=== PATIENT | female | born 1940 | race Caucasian/White ===

== ENCOUNTER 2022-09-20 10:35 | Outpatient (CLI) | payer MEDICARE, SELFPAY | END 2022-09-20 10:36 | disposition home or self-care (01) | PROVIDERS: PCP Family Medicine; Visit Provider Family Medicine | DX: I10 Essential (primary) hypertension (principal); E53.8 Deficiency of other specified B group vitamins; E78.5 Hyperlipidemia, unspecified; F41.9 Anxiety disorder, unspecified; R53.83 Other fatigue | CPT/HCPCS: 80053; 80061; 82607; 84443 ==

== ENCOUNTER 2022-10-28 08:49 | Outpatient (CLI) | payer MEDICARE, SELFPAY ==
--- NOTE | 2022-10-28 09:15 | CRLHL7_ITS ---
For Patients: As a result of the Century Cures Act, medical imaging exams and procedure reports are released immediately into your electronic medical record. You may view this report before your referring provider. If you have questions, please contact your health care provider. INDICATION: LIVER LESION, POSSIBLE GB PROBLEM ON CT COMPARISON: Not available TECHNIQUE: Real time albarado scale imaging and color Doppler analysis was performed of the right upper quadrant. FINDINGS: There is a cystic lesion arising from the liver adjacent to the gallbladder measuring 5.0 x 4.2 x 5.3 cm. Mild internal echoes are present within this cyst. A small left hepatic lobe cyst is also noted measuring 1.3 x 1.1 x 1.1 cm. A 3rd mildly cyst is also present within the left hepatic lobe measuring 1.2 x 0.7 x 1.5 cm. There is a normal appearance of the hepatic IVC and proximal abdominal aorta. There is no evidence of ascites. The gallbladder is of normal size and there is no evidence of intraluminal stones or sludge. The gallbladder wall measures 2 mm in thickness. The common bile duct is of normal size and measures 3 mm in diameter at the level of the alaina hepatis. The pancreas appears normal. There is no evidence of a stone or hydronephrosis within the right kidney. The right kidney measures 9.6 cm in length. IMPRESSION: 5.0 cyst with internal echoes arising from the liver centrally adjacent to the gallbladder. The gallbladder is normal. Additional smaller cysts in the left hepatic lobe measuring 1.3 cm and 1.2 cm. Dictated by Michael Barrientos MD @ 10/28/2022 10:34:15 AM (Electronically Signed)
== END 2022-10-28 08:50 | disposition home or self-care (01) ==
LOC: US 08:52
PROVIDERS: PCP Family Medicine; Visit Provider Family Medicine
DX: K76.9 Liver disease, unspecified (principal); K76.89 Other specified diseases of liver
CPT/HCPCS: 76705

== ENCOUNTER 2022-12-05 14:16 | Outpatient (CLI) | payer MEDICARE, SELFPAY ==
--- NOTE | 2022-12-05 14:30 | CRLHL7_ITS ---
For Patients: As a result of the Century Cures Act, medical imaging exams and procedure reports are released immediately into your electronic medical record. You may view this report before your referring provider. If you have questions, please contact your health care provider. DXA BONE MINERAL DENSITY STUDY Reason for exam: Asymptomatic menopausal state. Current height (in): 66. Weight (lb): 150. Menopause age: 51. Ethnicity: White. 1. Have you had a previous hip or vertebral fracture? No. 2. Have you had any fractures during your adult life which did not result from significant trauma (e.g., auto accident)? No. 3. Did either of your parents have a hip fracture? No. 4. Do you smoke? No. 5. Have you ever taken Glucocorticoids? No. 6. Do you have rheumatoid arthritis? No. 7. Do you have secondary osteoporosis? No. 8. Do you drink 3 or more alcoholic drinks per day? No. 9. Are you being treated for osteoporosis? No. 10. Have you ever taken any of the following medications: ANSWER: No. Actonel, Evista, Fosamax, Miacalcin, Reclast, Boniva, Forteo, HRT (i.e. estrogen/hormone therapy), Protelos, Prolia, Vitamin D, Calcium, other ??? please specify. 11. Do you have any of the following medical conditions: ANSWER: No. Anorexia or bulimia, asthma or emphysema, end stage renal disease, hyperparathyroidism, any seizure disorders, cancer, inflammatory bowel diseases, hysterectomy, other ??? please specify. 12. What was your maximum height (inches)? 66. 13. Do you perform weight bearing exercise regularly? No. 14. Do you regularly consume dairy products? Yes. 15. Do you drink caffeinated beverages? Yes. 16. At what age did your period start? 12. 17. Are you premenopausal? No. 18. How many full term pregnancies have you had? 3. 19. Have you ever missed your period for more than 6 months in a row (not including or menopause)? No. TECHNIQUE: Bone mineral density study was performed using the [employer]. FINDINGS: The results of the study expressed as bone mineral density (BMD) are as follows: Lumbar spine L2 to L4: BMD: 1.032 g/cm2. T-score: -0.4. Z-score: 2.4. Neck Left: BMD: 0.681 g/cm2. T-score: -1.5. Z-score: 0.8. Right: BMD: 0.764 g/cm2. T-score: -0.8. Z-score: 1.6. Total Left: BMD: 0.901 g/cm2. T-score: -0.3. Z-score: 1.8. Right: BMD: 0.845 g/cm2. T-score: -0.8. Z-score: 1.3. IMPRESSION: Osteopenia. *Comparison exams done prior to 08/2019 were performed on different unit, [employer]. FRAX 10-year Fracture Risk Major Osteoporotic Fracture: 13 percent Hip Fracture: 3.5 percent Reported Risk Factors: [place] () Neck BMD=0.681, BMI=24.2. Michael Barrientos M.D. Diagnostic Radiologist [email or web address] DW/Dictated by: Michael Barrientos MD @ 12/06/2022 12:17:00 PM (Electronically Signed)
== END 2022-12-05 14:17 | disposition home or self-care (01) ==
LOC: RAD 14:16
PROVIDERS: PCP Family Medicine; Visit Provider Family Medicine
DX: M85.88 Other specified disorders of bone density and structure, other site (principal); Z78.0 Asymptomatic menopausal state
CPT/HCPCS: 77080

== ENCOUNTER 2022-12-11 10:40 | Outpatient (CLI) | payer MEDICARE, SELFPAY | END 2022-12-11 10:41 | disposition home or self-care (01) | LOC: NFLDREF 12-13 13:05 | PROVIDERS: PCP Family Medicine; Referring Provider Family Medicine; Visit Provider Family Medicine | DX: I10 Essential (primary) hypertension (principal); M85.80 Other specified disorders of bone density and structure, unspecified site; Z78.0 Asymptomatic menopausal state | CPT/HCPCS: 80048; 82306 ==

== ENCOUNTER 2023-04-10 15:19 | Outpatient (CLI) | payer MEDICARE, SELFPAY | END 2023-04-10 15:20 | disposition home or self-care (01) | LOC: NFLDREF 15:20 | PROVIDERS: PCP Family Medicine; Visit Provider Family Medicine | DX: I10 Essential (primary) hypertension (principal) | CPT/HCPCS: 80048 ==

== ENCOUNTER 2023-10-30 16:21 | Outpatient (CLI) | payer MEDICARE, SELFPAY | END 2023-10-30 16:22 | disposition home or self-care (01) | PROVIDERS: PCP Family Medicine; Visit Provider Family Medicine | DX: I10 Essential (primary) hypertension (principal); E78.5 Hyperlipidemia, unspecified; M85.852 Other specified disorders of bone density and structure, left thigh; E53.8 Deficiency of other specified B group vitamins; R53.83 Other fatigue; Z13.29 Encounter for screening for other suspected endocrine disorder; Z13.21 Encounter for screening for nutritional disorder | CPT/HCPCS: 80053; 80061; 82306; 82607; 84443 ==

== ENCOUNTER 2023-11-12 13:38 | Outpatient (CLI) | payer MEDICARE, SELFPAY ==
--- NOTE | 2023-11-12 14:00 | CRLHL7_ITS ---
For Patients: As a result of the Century Cures Act, medical imaging exams and procedure reports are released immediately into your electronic medical record. You may view this report before your referring provider. If you have questions, please contact your health care provider. INDICATIONS: Deformity of sternum and chest. TECHNIQUE: CT chest without contrast. COMPARISON: Chest radiograph 10/30/2023. CT chest 05/06/2022. FINDINGS: No pleural or pericardial effusion. No pathologic lymphadenopathy. Aortic atherosclerosis and tortuosity, as before. 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 Main pulmonary artery is normal in caliber. Borderline/mild cardiomegaly, unchanged. Soft tissues of the thoracic wall are unremarkable. No pneumothorax. Central airways are patent. Mild bibasilar scarring or atelectasis. Lungs are otherwise clear. Stable hepatic cysts. Visualized unenhanced upper abdomen is otherwise unremarkable. No new or suspicious abnormality of the sternum. The sternum is unchanged compared with prior chest CT. Degenerative changes of the spine. IMPRESSION: 1. Stable CT appearance of the sternum. No acute or suspicious osseous abnormality. 2. No evidence of acute disease in the chest. 3. 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 Dictated by Tyrese Westfall MD @ 11/14/2023 9:10:14 AM Please note that all CT scans at this facility use dose modulation, iterative reconstruction, and/or weight-based dosing when appropriate to reduce radiation dose to as low as reasonably achievable. Dictated by: Tyrese Westfall MD @ 11/14/2023 09:10:45 (Electronically Signed)
== END 2023-11-12 13:39 | disposition home or self-care (01) ==
PROVIDERS: PCP Family Medicine; Visit Provider Family Medicine
DX: M95.4 Acquired deformity of chest and rib (principal); I77.810 Thoracic aortic ectasia
CPT/HCPCS: 71250

== ENCOUNTER 2024-07-09 10:10 | Outpatient (CLI) | payer MEDICARE, SELFPAY | END 2024-07-09 10:11 | disposition home or self-care (01) | LOC: NFLDREF 07-13 17:51 | PROVIDERS: PCP Family Medicine; Referring Provider Family Medicine; Visit Provider Family Medicine | DX: I10 Essential (primary) hypertension (principal); R73.03 Prediabetes | CPT/HCPCS: 80053 ==

== ENCOUNTER 2024-11-08 14:09 | Outpatient (CLI) | payer MEDICARE, SELFPAY | END 2024-11-08 14:10 | disposition home or self-care (01) | LOC: NFLDREF 11-12 11:32 | PROVIDERS: PCP Family Medicine; Referring Provider Family Medicine; Visit Provider Family Medicine | DX: R73.03 Prediabetes (principal); M85.852 Other specified disorders of bone density and structure, left thigh; E53.8 Deficiency of other specified B group vitamins; I10 Essential (primary) hypertension; E78.5 Hyperlipidemia, unspecified | CPT/HCPCS: 80053; 80061; 82306; 82607 ==

== ENCOUNTER 2024-12-29 15:06 | Outpatient (CLI) | payer MEDICARE, SELFPAY ==
--- NOTE | 2024-12-29 15:30 | CRLHL7_ITS ---
For Patients: As a result of the Century Cures Act, medical imaging exams and procedure reports are released immediately into your electronic medical record. You may view this report before your referring provider. If you have questions, please contact your health care provider. XR DXA Bone Mineral Density (BMD) Reason for exam: Other specified disorders of bone density. Current height (inches): 65.0 Weight (lbs.): 150.0 Menopause age: 51 Ethnicity: White 1. Have you had a previous hip or vertebral fracture? No. 2. Have you had any fractures during your adult life which did not result from significant trauma (e.g., auto accident)? No. 3. Did either of your parents have a hip fracture? No. 4. Do you smoke? No. 5. Have you ever taken Glucocorticoids? No. 6. Do you have rheumatoid arthritis? No. 7. Do you have secondary osteoporosis? No. 8. Do you drink 3 or more alcoholic drinks per day? No. 9. Are you being treated for osteoporosis? No. 10. Have you ever taken any of the following medications: Actonel, Evista, Fosamax, Miacalcin, Reclast, Boniva, Forteo, HRT (i.e., estrogen/hormone therapy), Protelos, Prolia, Vitamin D, Calcium, other ??? please specify. ANSWER: Yes; vitamin D and calcium. 11. Do you have any of the following medical conditions: Anorexia or bulimia, asthma or emphysema, end stage renal disease, hyperparathyroidism, any seizure disorders, cancer, inflammatory bowel diseases, hysterectomy, other ??? please specify. ANSWER: No. 12. What was your maximum height (inches)? 66. 13. Do you perform weightbearing exercise regularly? No. 14. Do you regularly consume dairy products? Yes. 15. Do you drink caffeinated beverages? Yes. 16. At what age did your period start? 12. 17. Are you premenopausal? No. 18. How many full-term pregnancies have you had? 3. 19. Have you ever missed your period for more than 6 months in a row (not including or menopause)? No. TECHNIQUE: Bone mineral density study was performed using the [employer]. FINDINGS: The results of the study expressed as bone mineral density (BMD) are as follows: Lumbar Spine L2 to L3: BMD: 0.967 g/cm2. T-score: -0.8. Z-score: 2.0. Neck Left: BMD: 0.662 g/cm2. T-score: -1.7. Z-score: 0.8. Right: BMD: 0.802 g/cm2. T-score: -0.4. Z-score: 2.0. Total Left: BMD: 0.900 g/cm2. T-score: -0.3. Z-score: 1.9. Right: BMD: 0.885 g/cm2. T-score: -0.5. Z-score: 1.8. IMPRESSION: Osteopenia. COMPARISON: Compared with scan of 12/05/2022, the bone mineral density has decreased by 1.1% at the spine and decreased by 2.2% at the hip. *Comparison exams done prior to 08/2019 were performed on different unit, [employer]. FRAX 10-year Fracture Risk Major Osteoporotic Fracture: 14% Hip Fracture: 4.0% Reported Risk Factors: [place] () Neck BMD = 0.662, BMI = 25.0 MICHAEL BAUTISTA M.D. Diagnostic Radiologist [email or web address] Transcribed: 12:[address]/Dictated by: Michael Bautista MD @ 12/30/2024 10:06:00 AM (Electronically Signed)
== END 2024-12-29 15:07 | disposition home or self-care (01) ==
LOC: RAD 15:08
PROVIDERS: PCP Family Medicine; Visit Provider Family Medicine
DX: M85.852 Other specified disorders of bone density and structure, left thigh (principal); M85.89 Other specified disorders of bone density and structure, multiple sites
CPT/HCPCS: 77080